=== PATIENT | male | born 1960 | race American Indian/Alaskan Native ===

== ENCOUNTER 2019-03-22 00:58 | Emergency (ER) | payer SELFPAY ==
[2019-03-22 01:09] VITALS: BP 142/82
--- NOTE | 2019-03-22 01:41 | XRay Report ---
CHEST 2 VIEWS INDICATION / CLINICAL INFORMATION: SOB/CP. COMPARISON: None available. FINDINGS: SUPPORT DEVICES: None. HEART / MEDIASTINUM: No significant abnormality. LUNGS / PLEURA: No significant pulmonary or pleural abnormality. .No pneumothorax. ADDITIONAL FINDINGS: No significant additional findings. IMPRESSION: 1. No acute findings. Signer Name: Mitchel Buchanan MD Signed: 03/22/2019 1:37 AM Workstation Name: [id number]
[2019-03-22] MEDS ORDERED: FAMOTIDINE 20 MG/2 ML INJ IV ONE (01:56)
[2019-03-22] MEDS ORDERED: chlorproMAZINE 25 MG in SODIUM CHLORIDE 0.9% 50 ML IV ONE (01:56)
[2019-03-22] MEDS ORDERED: ASPIRIN 325 MG TAB PO ONE (01:56)
[2019-03-22 03:01] LABS: Hematocrit 44.5 % (35.5-45.6); Lymphocytes % (Auto) 19.2 % (13.4-35.0); Mean Corpuscular HGB Conc 34 % (32-34); Mean Corpuscular Volume 96 fl (84-94); Platelet Count 333 K/mm3 (140-440); Red Blood Count 4.63 M/mm3 (3.65-5.03); Red Cell Distribution Width 13.5 % (13.2-15.2)
[2019-03-22 03:02] LABS: Basophils # (Auto) 0.1 K/mm3 (0.0-0.1); Basophils % (Auto) 0.8 % (0.0-1.8); Eosinophils # (Auto) 0.1 K/mm3 (0.0-0.4); Eosinophils % (Auto) 1.3 % (0.0-4.3); Lymphocytes # (Auto) 1.8 K/mm3 (1.2-5.4); Monocytes # (Auto) 1.1 K/mm3 (0.0-0.8); Monocytes % (Auto) 11.3 % (0.0-7.3)
[2019-03-22 03:04] LABS: Alanine Aminotransferase 30 units/L (7-56); Albumin 4.4 g/dL (3.9-5); BUN/Creatinine Ratio 10; Blood Urea Nitrogen 10 mg/dL (9-20); Calcium 9.8 mg/dL (8.4-10.2); Hemolysis Index 8
--- NOTE | 2019-03-22 04:24 | Emergency Department Report ---
ED General Adult HPI - General Chief complaint: Chest Pain Stated complaint: CHEST PAIN Source: patient, family Mode of arrival: Ambulatory Limitations: No Limitations - History of Present Illness Initial comments: Patient is a 58-year-old -[place] male with no past medical history except chronic tobacco smoker who presents to the ED with acute onset persistent intermittent hiccups with shortness of breath and cough for the last 1 month. Patient states that prior to arrival in the ED his symptoms got worse. Patient denies dizziness, chest pain, change in vision, fever, chills, nausea, vomiting, abdominal pain, sore throat, headache, traumatic injury, syncope or palpitations. MD Complaint: hiccups; chest tightness; dry cough -: Sudden, month(s) (1) Location: chest Radiation: non-radiation Severity scale (0 -10): 4 Quality: aching, dull Consistency: intermittent Improves with: none Worsens with: none Associated Symptoms: denies other symptoms, cough, shortness of breath. denies: confusion, chest pain, diaphoresis, fever/chills, headaches, loss of appetite, malaise, nausea/vomiting, rash, seizure, syncope, weakness Treatments Prior to Arrival: none - Related Data Previous Rx's Medication Instructions Recorded Last Taken Type Benzonatate [Tessalon Perles] 100 mg PO Q8HR #30 capsule 03/22/19 Unknown Rx Cyclobenzaprine [Flexeril] 10 mg PO Q8H PRN #21 tablet 03/22/19 Unknown Rx Famotidine [Pepcid] 20 mg PO Q12H #60 tablet 03/22/19 Unknown Rx predniSONE [Deltasone] 40 mg PO QDAY #10 tab 03/22/19 Unknown Rx Allergies Allergy/AdvReac Type Severity Reaction Status Date / Time No Known Allergies Allergy Verified 03/22/19 02:03 ED Review of Systems ROS: Stated complaint: CHEST PAIN Other details as noted in HPI Constitutional: denies: chills, fever Eyes: denies: eye pain, eye discharge, vision change ENT: denies: ear pain, throat pain Respiratory: cough, shortness of breath, other (hiccups). denies: wheezing Cardiovascular: denies: chest pain, palpitations Endocrine: no symptoms reported Gastrointestinal: denies: abdominal pain, nausea, diarrhea Genitourinary: denies: urgency, dysuria Musculoskeletal: denies: back pain, joint swelling, arthralgia Skin: denies: rash, lesions Neurological: denies: headache, weakness, paresthesias Psychiatric: denies: anxiety, depression Hematological/Lymphatic: denies: easy bleeding, easy bruising ED Past Medical Hx - Past Medical History Previous Medical History?: No - Surgical History Past Surgical History?: No - Social History Smoking Status: Current Every Day Smoker Substance Use Type: Alcohol, Marijuana - Medications Home Medications: Home Medications Medication Instructions Recorded Confirmed Last Taken Type Benzonatate [Tessalon Perles] 100 mg PO Q8HR #30 capsule 03/22/19 Unknown Rx Cyclobenzaprine [Flexeril] 10 mg PO Q8H PRN #21 tablet 03/22/19 Unknown Rx Famotidine [Pepcid] 20 mg PO Q12H #60 tablet 03/22/19 Unknown Rx predniSONE [Deltasone] 40 mg PO QDAY #10 tab 03/22/19 Unknown Rx ED Physical Exam - General Limitations: No Limitations General appearance: alert, in no apparent distress - Head Head exam: Present: atraumatic, normocephalic, normal inspection - Eye Eye exam: Present: normal appearance, PERRL, EOMI Pupils: Present: normal accommodation - ENT ENT exam: Present: normal exam, normal orophraynx, mucous membranes moist, TM's normal bilaterally, normal external ear exam - Neck Neck exam: Present: normal inspection, full ROM - Respiratory Respiratory exam: Present: normal lung sounds bilaterally. Absent: respiratory distress, wheezes, rhonchi, chest wall tenderness, accessory muscle use, decreased breath sounds - Cardiovascular Cardiovascular Exam: Present: regular rate, normal rhythm, normal heart sounds. Absent: systolic murmur, diastolic murmur, rubs, gallop - GI/Abdominal GI/Abdominal exam: Present: soft, normal bowel sounds. Absent: tenderness, hyperactive bowel sounds - Extremities Exam Extremities exam: Present: normal inspection, full ROM, normal capillary refill - Back Exam Back exam: Present: normal inspection, full ROM. Absent: tenderness, CVA tenderness (R), CVA tenderness (L), muscle spasm, paraspinal tenderness - Neurological Exam Neurological exam: Present: alert, oriented X3, CN II-XII intact, normal gait, reflexes normal - Psychiatric Psychiatric exam: Present: normal affect, normal mood, anxious - Skin Skin exam: Present: warm, dry, intact, normal color. Absent: rash ED Course Vital Signs 03/22/19 01:07 Temperature 98.9 F Pulse Rate 67 Respiratory 19 Rate Blood Pressure 142/82 O2 Sat by Pulse 100 Oximetry ED Medical Decision Making - Lab Data Result diagrams: 03/22/19 02:06 03/22/19 02:06 - Radiology Data Radiology results: report reviewed, image reviewed Findings [facility] [address] [place] [address] XRay Report Signed Patient: ESTHER CRAWFORD MR#: [id number] : 1960 Acct:[id number] Age/Sex: 58 / M ADM Date: 03/22/19 Loc: ED Attending Dr: Ordering Physician: PERLA CARROLL III, MD Date of Service: 03/22/19 Procedure(s): XR chest routine 2V Accession Number(s): [id number] cc: PERLA CARROLL III, MD Fluoro Time In Minutes: CHEST 2 VIEWS INDICATION / CLINICAL INFORMATION: SOB/CP. COMPARISON: None available. FINDINGS: SUPPORT DEVICES: None. HEART / MEDIASTINUM: No significant abnormality. LUNGS / PLEURA: No significant pulmonary or pleural abnormality. .No pneumothorax. ADDITIONAL FINDINGS: No significant additional findings. IMPRESSION: 1. No acute findings. Signer Name: Mitchel Buchanan MD Signed: 03/22/2019 1:37 AM Workstation Name: [id number] Transcribed By: SS Dictated By: Mitchel Buchanan MD Electronically Authenticated By: Mitchel Buchanan MD Signed Date/Time: 03/22/19136 DD/ 6 TD/TT: - Medical Decision Making This is a 58-year-old male who presented to the ED with persistently worsening intermittent hiccups with shortness of breath and cough for the last 1 month, worse in the last 2 hours prior to arrival in the ED. In the ED, patient is alert and oriented x3 and is not in any distress. Patient was treated in the ED for hiccups, also treated for GERD. Lab test results were reviewed and are all nonactionable. Chest x-ray shows no acute cardiopulmonary abnormalities, pneumonitis, pneumothorax or pleural effusion. On reevaluation, patient has not had any hiccups in the ED and patient felt better. Patient was discharged home on muscle relaxants and antacids and was advised to return to the ED immediately if symptoms get worse, otherwise follow-up with his primary care physician in 5 to 7 days for reevaluation. - Differential Diagnosis Hiccups; Esophageal spasms; GERD; Anxiety; Bronchitis; tobacco abuse Critical care attestation.: If time is entered above; I have spent that time in minutes in the direct care of this critically ill patient, excluding procedure time. ED Disposition Clinical Impression: Hiccoughs, Spasm of esophagus Acute bronchitis Qualifiers: Bronchitis organism: other organism Qualified Code(s): J20.8 - Acute bronchitis due to other specified organisms GERD (gastroesophageal reflux disease) Qualifiers: Esophagitis presence: without esophagitis Qualified Code(s): K21.9 - Gastro- esophageal reflux disease without esophagitis Disposition: TO HOME OR SELFCARE Is pt being admited?: No Does the pt Need Aspirin: No Condition: Stable Instructions: Hiccups (ED), Acute Bronchitis (ED), Gastroesophageal Reflux Disease (ED), Esophageal Spasm (ED) Additional Instructions: Your lab test results are unremarkable as well as chest x-ray. Your symptoms are likely due to esophageal spasm, complications of GERD and acute bronchitis worsened by chronic tobacco smoking. Please consider quitting tobacco use to improve your symptoms. Otherwise take medications as advised and follow-up with your primary care physician in 5 to 7 days for reevaluation. Return to the ED immediately if symptoms get worse. Prescriptions: predniSONE [Deltasone] 40 mg PO QDAY #10 tab Cyclobenzaprine [Flexeril] 10 mg PO Q8H PRN #21 tablet PRN Reason: Muscle Spasm Famotidine [Pepcid] 20 mg PO Q12H #60 tablet Benzonatate [Tessalon Perles] 100 mg PO Q8HR #30 capsule Referrals: [facility] [Outside] - 7-10 days Forms: Work/School Release Form(ED) Time of Disposition: 04:23 Print Language: KISWAHILI
== END 2019-03-22 04:30 | disposition home or self-care (01) ==
LOC: ED 00:58
DX: K22.4 Dyskinesia of esophagus (principal); R06.6 Hiccough; J20.8 Acute bronchitis due to other specified organisms; K21.9 Gastro-esophageal reflux disease without esophagitis; F17.200 Nicotine dependence, unspecified, uncomplicated; F12.10 Cannabis abuse, uncomplicated; Z79.899 Other long term (current) drug therapy
CPT/HCPCS: 36415; 71046; 80053; 83880; 84484; 85025; 93005; 93010; 96365; 96375; 99284; J3230

== ENCOUNTER 2019-04-12 17:19 | Emergency (ER) | payer SELFPAY ==
[2019-04-12] MEDS ORDERED: ONDANSETRON 4 MG ODT TAB PO ONE (19:57)
[2019-04-12] MEDS ORDERED: FAMOTIDINE 20 MG TAB PO ONE (19:57)
[2019-04-12] MEDS ORDERED: ACETAMINOPHEN 500 MG TAB PO ONE (19:57)
--- NOTE | 2019-04-12 20:02 | Emergency Department Report ---
- General Chief Complaint: Upper Respiratory Infection Stated Complaint: FLU SYM Source: patient Mode of arrival: Ambulatory Limitations: No Limitations - History of Present Illness Initial Comments: Patient is a 58-year-old -Greek male with no past medical history presents to the ED with complaint of acute onset persistent nasal and sinus congestion, frontal sinus pressure and headache, diffuse body aches and pains, persistent dry cough with pleuritic chest wall pain, diaphoresis, subjective fever and chills and lack of appetite and nausea for the last 3 days. Patient states that there is no one else at home or at work with similar symptoms that he knows of. Patient denies dizziness, chest pain, shortness of breath, abdominal pain, vomiting, palpitations, dysuria, urinary frequency and urgency, diarrhea, syncope or change in vision. MD Complaint: cough, sore throat, rhinorrhea, nasal congestion, sinus pain -: Sudden, days(s) (3) Severity: severe Severity scale (0 -10): 7 Quality: sharp, aching Consistency: constant Improves With: nothing Worsens With: nothing Associated Symptoms: denies other symptoms, fever, chills, myalgias, headache, rhinorrhea, nasal congestion, cough. denies: diaphoresis, sore throat, chest pain, shortness of breath, abdominal pain, nausea, vomiting, diarrhea, dysuria, rash, weight loss, epistaxis, hoarseness, ear pain, other Treatments Prior to Arrival: none - Related Data Previous Rx's Medication Instructions Recorded Last Taken Type Benzonatate [Tessalon Perles] 100 mg PO Q8HR #30 capsule 03/22/19 Unknown Rx Cyclobenzaprine [Flexeril] 10 mg PO Q8H PRN #21 tablet 03/22/19 Unknown Rx Famotidine [Pepcid] 20 mg PO Q12H #60 tablet 03/22/19 Unknown Rx predniSONE [Deltasone] 40 mg PO QDAY #10 tab 03/22/19 Unknown Rx Amoxicillin [Trimox CAP] 500 mg PO Q8H #30 capsule 04/12/19 Unknown Rx Benzonatate [Tessalon Perles] 100 mg PO Q8HR #30 capsule 04/12/19 Unknown Rx Famotidine [Pepcid] 20 mg PO Q12H #60 tablet 04/12/19 Unknown Rx Ibuprofen [Motrin] 600 mg PO Q8H PRN #20 tablet 04/12/19 Unknown Rx Ondansetron [Zofran Odt] 4 mg PO Q6HR PRN #15 tab.rapdis 04/12/19 Unknown Rx methylPREDNISolone [Medrol 4MG 4 mg PO DAILY #21 tab.ds.pk 04/12/19 Unknown Rx DOSEPAK (21 tabs)] Allergies Allergy/AdvReac Type Severity Reaction Status Date / Time No Known Allergies Allergy Verified 04/12/19 17:27 ED Review of Systems ROS: Stated complaint: FLU SYM Other details as noted in HPI Constitutional: chills, fever, malaise, weakness Eyes: denies: eye pain, eye discharge, vision change ENT: denies: ear pain, throat pain Respiratory: cough. denies: shortness of breath, wheezing Cardiovascular: denies: chest pain, palpitations Endocrine: no symptoms reported Gastrointestinal: nausea. denies: abdominal pain, vomiting, diarrhea Genitourinary: denies: urgency, dysuria Musculoskeletal: arthralgia, myalgia. denies: back pain, joint swelling Skin: denies: rash, lesions Neurological: denies: weakness, paresthesias Psychiatric: denies: anxiety, depression Hematological/Lymphatic: denies: easy bleeding, easy bruising ED Past Medical Hx - Past Medical History Previous Medical History?: No - Surgical History Past Surgical History?: No - Social History Smoking Status: Current Every Day Smoker Substance Use Type: None - Medications Home Medications: Home Medications Medication Instructions Recorded Confirmed Last Taken Type Benzonatate [Tessalon Perles] 100 mg PO Q8HR #30 capsule 03/22/19 Unknown Rx Cyclobenzaprine [Flexeril] 10 mg PO Q8H PRN #21 tablet 03/22/19 Unknown Rx Famotidine [Pepcid] 20 mg PO Q12H #60 tablet 03/22/19 Unknown Rx predniSONE [Deltasone] 40 mg PO QDAY #10 tab 03/22/19 Unknown Rx Amoxicillin [Trimox CAP] 500 mg PO Q8H #30 capsule 04/12/19 Unknown Rx Benzonatate [Tessalon Perles] 100 mg PO Q8HR #30 capsule 04/12/19 Unknown Rx Famotidine [Pepcid] 20 mg PO Q12H #60 tablet 04/12/19 Unknown Rx Ibuprofen [Motrin] 600 mg PO Q8H PRN #20 tablet 04/12/19 Unknown Rx Ondansetron [Zofran Odt] 4 mg PO Q6HR PRN #15 tab.rapdis 04/12/19 Unknown Rx methylPREDNISolone [Medrol 4MG 4 mg PO DAILY #21 tab.ds.pk 04/12/19 Unknown Rx DOSEPAK (21 tabs)] ED Physical Exam - General Limitations: No Limitations General appearance: alert, in no apparent distress - Head Head exam: Present: atraumatic, normocephalic, normal inspection - Eye Eye exam: Present: normal appearance, PERRL, EOMI Pupils: Present: normal accommodation - ENT ENT exam: Present: normal exam, normal orophraynx, mucous membranes moist, TM's normal bilaterally, normal external ear exam, other (Grossly congested nasal passages; palpable frontal sinus tenderness) - Neck Neck exam: Present: normal inspection, full ROM. Absent: tenderness, lymphadenopathy - Respiratory Respiratory exam: Present: normal lung sounds bilaterally. Absent: respiratory distress, wheezes, rales, rhonchi, chest wall tenderness, accessory muscle use, decreased breath sounds, prolonged expiratory - Cardiovascular Cardiovascular Exam: Present: regular rate, normal rhythm, normal heart sounds. Absent: systolic murmur, diastolic murmur, rubs, gallop - GI/Abdominal GI/Abdominal exam: Present: soft, normal bowel sounds. Absent: tenderness, guarding, rebound, hyperactive bowel sounds - Extremities Exam Extremities exam: Present: normal inspection, full ROM, normal capillary refill - Back Exam Back exam: Present: normal inspection, full ROM. Absent: tenderness, CVA tenderness (R), CVA tenderness (L), muscle spasm, paraspinal tenderness, vertebral tenderness - Neurological Exam Neurological exam: Present: alert, oriented X3, CN II-XII intact, normal gait, reflexes normal - Psychiatric Psychiatric exam: Present: normal affect, normal mood - Skin Skin exam: Present: warm, dry, intact, normal color. Absent: rash ED Course Vital Signs 04/12/19 17:25 Temperature 97.3 F L Pulse Rate 99 H Respiratory 18 Rate Blood Pressure 175/90 O2 Sat by Pulse 95 Oximetry ED Medical Decision Making - Radiology Data Radiology results: report reviewed, image reviewed - Medical Decision Making This is a 58-year-old male who presented to the ED with acute onset persistent nasal and sinus congestion, frontal sinus pressure and headache, diffuse body aches and pains, subjective fever and chills, dry cough with pleuritic chest wall pain, lack of appetite and nausea. In the ED, patient is alert and oriented x3 and is not in distress. Patient was treated for pain and for nausea. Chest x-ray shows no acute cardiopulmonary abnormalities or pneumonitis, pneumothorax or pleural effusion. Patient symptoms are likely acute upper respiratory infection versus acute bronchitis and sinusitis. On reevaluation, patient's pain is well controlled with medications. Patient was discharged home on medications and advised to drink plenty of fluids, take medications and follow-up with his primary care physician in 5 to 7 days for reevaluation. Patient was advised to return to the ED immediately if symptoms get worse. - Differential Diagnosis Sinusitis; URI; Bronchitis; Pneumonia; Flu Critical care attestation.: If time is entered above; I have spent that time in minutes in the direct care of this critically ill patient, excluding procedure time. ED Disposition Clinical Impression: Acute upper respiratory infection, Flu-like symptoms Acute frontal sinusitis Qualifiers: Recurrence: non-recurrent Qualified Code(s): J01.10 - Acute frontal sinusitis, unspecified Acute bronchitis Qualifiers: Bronchitis organism: unspecified organism Qualified Code(s): J20.9 - Acute bronchitis, unspecified Disposition: DC-01 TO HOME OR SELFCARE Is pt being admited?: No Does the pt Need Aspirin: No Condition: Stable Instructions: Upper Respiratory Infection (ED), Acute Bronchitis (ED), Acute Bacterial Rhinosinusitis (ED) Additional Instructions: Take medications with food, drink plenty of fluids and follow-up with your primary care physician in 7 to 10 days for reevaluation. Return to the ED immediately if symptoms get worse. Prescriptions: methylPREDNISolone [Medrol 4MG DOSEPAK (21 tabs)] 4 mg PO DAILY #21 tab.ds.pk Ibuprofen [Motrin] 600 mg PO Q8H PRN #20 tablet PRN Reason: Pain Famotidine [Pepcid] 20 mg PO Q12H #60 tablet Benzonatate [Tessalon Perles] 100 mg PO Q8HR #30 capsule Amoxicillin [Trimox CAP] 500 mg PO Q8H #30 capsule Ondansetron [Zofran Odt] 4 mg PO Q6HR PRN #15 tab.rapdis PRN Reason: Nausea Referrals: CARBUCCIA,HANG, MD [Staff Physician] - 7-10 days Forms: Work/School Release Form(ED) Time of Disposition: 20:29 Print Language: MAORI
--- NOTE | 2019-04-12 20:41 | XRay Report ---
CHEST 2 VIEWS INDICATION / CLINICAL INFORMATION: COUGH, FEVER, URI X 3DAYS. COMPARISON: 03/22/19. FINDINGS: SUPPORT DEVICES: None. HEART / MEDIASTINUM: The heart size and pulmonary vasculature are normal. LUNGS / PLEURA: No significant pulmonary or pleural abnormality. No pneumothorax. ADDITIONAL FINDINGS: No significant additional findings. IMPRESSION: No acute abnormality or significant change. There is no evidence of pneumonia. Signer Name: Wicho Fox MD Signed: 04/12/2019 8:36 PM Workstation Name: [id number]
[2019-04-12 21:15] VITALS: BP 167/89
== END 2019-04-12 21:16 | disposition home or self-care (01) ==
LOC: ED 17:19
DX: J01.10 Acute frontal sinusitis, unspecified (principal); J20.9 Acute bronchitis, unspecified; J11.1 Influenza due to unidentified influenza virus with other respiratory manifestations
CPT/HCPCS: 71046; 99283; Q0162